=== PATIENT | male | born 1995 | race Hispanic/Latino ===

== ENCOUNTER 2022-08-07 09:09 | Emergency (ER) | payer OTHER ==
[~2022-08-07] VITALS: Ht 177.8 cm; Wt 118.6 kg
[2022-08-07] MEDS ORDERED: ONDANSETRON ODT4 MG PO (11:29)
== END 2022-08-07 11:44 | disposition home or self-care (01) ==
LOC: ED 09:09
DX: S06.0X0A Concussion without loss of consciousness, initial encounter (principal); W01.0XXA Fall on same level from slipping, tripping and stumbling without subsequent striking against object, initial encounter
CPT/HCPCS: 70450; 72125; 72128; 99284-25; A9270

== ENCOUNTER 2022-12-28 11:02 | Emergency (ER) | payer OTHER ==
[~2022-12-28] VITALS: Ht 177.8 cm; Wt 121.4 kg
[~2022-12-28 11:02] MED LIST: ONDANSETRON ODT4 MG PO
[2022-12-28] MEDS ORDERED: AMOX TR-K CLV1 EAC1 PO (15:27)
[2022-12-28] MEDS ORDERED: HYDROCODON-ACE1 EA10 PO (15:27)
[2022-12-28] MEDS ORDERED: PREDNISONE20 MG PO (15:27)
[2022-12-28 15:40] VITALS: BP 132/92
== END 2022-12-28 15:35 | disposition home or self-care (01) ==
LOC: ED 11:02
DX: H66.92 Otitis media, unspecified, left ear (principal)
CPT/HCPCS: 99283

== ENCOUNTER 2023-03-19 07:26 | Emergency (ER) | payer OTHER ==
[~2023-03-19 07:26] MED LIST changes: +AMOX TR-K CLV1 EAC1 PO; +HYDROCODON-ACE1 EA10 PO; +PREDNISONE20 MG PO
[2023-03-19] MEDS ORDERED: ONDANSETRON ODT8 MG PO (08:38)
[2023-03-19] MEDS ORDERED: PROTONIX20 MG PO (08:38)
[2023-03-19 09:06] VITALS: BP 128/71
== END 2023-03-19 09:00 | disposition home or self-care (01) ==
LOC: ED 07:26
DX: K52.9 Noninfective gastroenteritis and colitis, unspecified (principal); K22.6 Gastro-esophageal laceration-hemorrhage syndrome; Z79.899 Other long term (current) drug therapy
CPT/HCPCS: 36415; 80053; 81003; 83690; 85025; 85610; 96374; 96375; 99284 25; J2405; J7030

== ENCOUNTER 2024-10-09 10:57 | Emergency (ER) | payer OTHER ==
[~2024-10-09] VITALS: Ht 177.8 cm; Wt 126.6 kg
[~2024-10-09 10:57] MED LIST changes: +MELOXICAM15 MG PO; +ONDANSETRON ODT8 MG PO; +PROTONIX20 MG PO; +TRAMADOL HCL50 MG PO
[2024-10-09 13:07] VITALS: BP 124/84
== END 2024-10-09 13:08 | disposition home or self-care (01) ==
LOC: ED 10:57
DX: S60.221A Contusion of right hand, initial encounter (principal); W10.9XXA Fall (on) (from) unspecified stairs and steps, initial encounter
CPT/HCPCS: 73110; 99283

== ENCOUNTER 2025-04-22 20:08 | Emergency (ER) | payer OTHER ==
[~2025-04-22] VITALS: Ht 177.8 cm; Wt 110.0 kg
[2025-04-22 21:19] VITALS: BP 131/86
== END 2025-04-22 21:20 | disposition home or self-care (01) ==
LOC: ED 20:08
DX: M79.641 Pain in right hand (principal)
CPT/HCPCS: 73130; 99283